=== PATIENT | female | born 1935 | race Caucasian/White ===

== ENCOUNTER 2017-06-30 13:52 | Emergency (ER) | payer MEDICARE, BC ==
--- NOTE | 2017-06-30 15:21 | RAD ---
2 VIEWS CHEST: Date: 06/30/17 HISTORY: Cough. FINDINGS: PA and lateral views of chest are obtained and demonstrate the lungs to be well aerated. No evidence of active intrathoracic disease is seen. No evidence of effusions, pneumonia, or pneumothorax seen. IMPRESSION: Normal 2 views chest. POS: [facility]
== END 2017-06-30 15:18 | disposition home or self-care (01) ==
LOC: SCSER 13:52
DX: J20.9 Acute bronchitis, unspecified (principal)
CPT/HCPCS: 71020; J7620